=== PATIENT | male | born 1965 | race Caucasian/White ===

== ENCOUNTER 2018-06-23 04:29 | Emergency (ER) | payer SELFPAY ==
[2018-06-23] MEDS ORDERED: Ondansetron ODT 4 MG TAB ONE (05:03)
[2018-06-23] MEDS ORDERED: Loperamide HCl 2 MG CAP ONE ×2 (05:20→05:21)
== END 2018-06-23 05:28 | disposition home or self-care (01) ==
LOC: MADERS 04:29
DX: K52.9 Noninfective gastroenteritis and colitis, unspecified (principal); J45.909 Unspecified asthma, uncomplicated; F17.210 Nicotine dependence, cigarettes, uncomplicated
CPT/HCPCS: 99283; Q0162